=== PATIENT | female | born 1975 | race African-American/Black ===

== ENCOUNTER 2020-12-14 17:50 | Emergency (ER) | payer MEDICAID ==
[~2020-12-14] VITALS: Ht 180.3 cm; Wt 120.2 kg
--- NOTE | 2020-12-14 18:55 | NUR ---
@[email or web address], medical screening exam in progress, endorsed to AMOR Holman
[2020-12-14 19:48] VITALS: BP 122/75
--- NOTE | 2020-12-14 19:48 | NUR ---
Patient discharged to home in stable condition. Written and verbal after care instructions given. Patient verbalizes understanding of instructions. Stressed follow up or return to ER for worsening s/s. Belongings given. Ankle Stirrup applied. Steady gait.
== END 2020-12-14 19:47 | disposition home or self-care (01) ==
LOC: ER 17:52
DX: S93.401A Sprain of unspecified ligament of right ankle, initial encounter (principal); V43.92XA Unspecified car occupant injured in collision with other type car in traffic accident, initial encounter; Y92.410 Unspecified street and highway as the place of occurrence of the external cause; Z82.49 Family history of ischemic heart disease and other diseases of the circulatory system
CPT/HCPCS: 73610; A4663